=== PATIENT | male | born 1990 | race Caucasian/White ===

== ENCOUNTER → 2018-07-11 12:19 | Outpatient (CLI) | payer OTHER, SELFPAY | PROVIDERS: Family Provider Family Medicine; PCP Family Medicine; Visit Provider Physician Assistant | DX: L30.1 Dyshidrosis [pompholyx] (principal) | CPT/HCPCS: 87070; 87077; 87147; 87186; 87205 ==

== ENCOUNTER 2018-09-07 08:34 | Emergency (ER) | payer OTHER, SELFPAY ==
[2018-09-07 08:38] VITALS: BP 150/102; PULSE 97; RESP 18; TEMP 36.9; O2SAT 96; BMI 36.1
[2018-09-07] MEDS: TET,DIPH,PERTUSS(ACELL),VAC/PF 0.5 ML SYRINGE IM (08:40)
--- NOTE | 2018-09-07 09:00 | ED_ITS ---
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 No numbness no tingling. Bleeding Controlled. Onset (ago): minute(s) Related Data Previous Rx's Medication Instructions Recorded triamcinolone acetonide 1 aime TOPICAL BID #30 gm 07/17/17 tramadol 50 mg tablet 50 mg PO QDAYP PRN #30 tab 07/04/18 mupirocin 2 % topical ointment 1 applic TOP TID #30 gram 07/11/18 Allergies Allergy/AdvReac Type Severity Reaction Status Date / Time No Known Drug Allergies Allergy Verified 09/07/18 08:41 Review of Systems Review of Systems GENERAL: Denies chills,fever HEENT: Denies throat pain RESPIRATORY: Denies dyspnea, cough, wheezing CARDIOVASCULAR: Denies chest pain, palpitations GASTROINTESTINAL: Denies nausea, vomiting MUSCULOSKELETAL: Denies extremity pain, injury SKIN: See HPI NEUROLOGIC: Denies weakness, dizziness, headache, numbness 8 point review of systems is negative except for those stated above and HPI PFSH Medical History Patient denies significant medical history (Acute) Social History Smoking Status: Former smoker Tobacco: How many years used: 3 alcohol intake: current (Daily) Social History Smoking Status: Former smoker Tobacco: How many years used: 3 alcohol intake: current (Daily) Exam Initial Vital Signs Initial Vital Signs: Vital Signs Temperature 98.4 F 09/07/18 08:38 Pulse Rate 97 H 09/07/18 08:38 Respiratory Rate 18 09/07/18 08:38 Blood Pressure 150/102 H 09/07/18 08:38 Pulse Oximetry 96 09/07/18 08:38 GENERAL: Well-appearing, well-nourished and in no acute distress. CARDIOVASCULAR: peripheral pulses in tact, cap refill <2 sec RESPIRATORY: No respiratory distress, speaks in full sentences without difficulty EXTREMITIES: Normal range of motion, no clubbing or edema. Neurovascularly intact NEUROLOGICAL: Cranial nerves II through XII grossly intact. Normal gait and speech. SKIN: Left thumb tip laceration through the very distal part of the nail. Bleeding controlled good skin approximation. Good alignment of everything. Skin Fingers- Fingertip Back: 1. Bleeding controlled good skin approximation good alignment Course Orders Ordered: Discontinued Medications Diphtheria/Tetanus/Acell Pertussis (Adacel) 0.5 ml IM .ONCE ONE Stop: 09/07/18 09:52 Last Admin: 09/07/18 08:40 Dose: 0.5 ml Vital Signs - 8 hr 09/07/18 08:38 09/07/18 10:07 Temperature 98.4 F Pulse Rate 97 H 95 H Respiratory Rate 18 20 Blood Pressure 150/102 H 129/88 Pulse Oximetry 96 99 MDM - Wound/Laceration MDM Narrative Medical decision making narrative: Dressing placed. Tetanus given. Discharge Plan Departure Patient Disposition: Home Clinical Impression: Laceration of left thumb Qualifiers: Encounter type: initial encounter Damage to nail status: with damage Foreign body presence: without foreign body Qualified Code(s): S61.112A - Laceration wit hout foreign body of left thumb with damage to nail, initial encounter Discharge Date/Time: 09/07/18 10:07 Interventions: ED Discharge Assessment Last Done: 09/07/18 10:07 Instructions: DI for Minor Laceration Activity Restrictions/Additional Instructions: *You have been diagnosed with laceration of left *What to do: May remove bandage this evening or tomorrow morning. Keep clean and dry with soap and water *Continue to take medications as directed Apply Neosporin or antibiotic ointment 1-2 times daily to help with healing *Follow up with your primary care provider in 2-3 days *Return to ER if you should have redness, pus, swelling, increased pain or any new, worsening or concerning symptoms Prescriptions: No Action tramadol 50 mg tablet 50 mg PO QDAYP PRN (Reason: pain) Qty: 30 RF: 0 mupirocin 2 % ointment 1 applic TOP TID Qty: 30 RF: 0 triamcinolone acetonide 0.1 % cream 1 aime Topical BID Qty: 30 RF: 0 Referrals: Sybil Rodriguez DO [Primary Care Provider] -
[2018-09-07 10:07] VITALS: BP 129/88; PULSE 95; RESP 20; O2SAT 99
== END 2018-09-07 10:07 | disposition home or self-care (01) ==
LOC: ED 09:25
PROVIDERS: Emergency Provider Emergency Medicine; PCP Family Medicine
DX: S61.112A Laceration without foreign body of left thumb with damage to nail, initial encounter (principal); W26.0XXA Contact with knife, initial encounter; Z23 Encounter for immunization; Y99.0 Civilian activity done for income or pay
CPT/HCPCS: 90471; 99283; 90715

== ENCOUNTER → 2021-09-11 17:38 | Outpatient (CLI) | payer OTHER, SELFPAY ==
[2021-09-11 20:42] LABS: Urine N gonorrhoeae NOT DETECTED
[2021-09-11 20:45] LABS: Urine Chlamydia NOT DETECTED
== END ==
PROVIDERS: PCP Family Medicine; Visit Provider Nurse Practitioner Family
DX: N34.3 Urethral syndrome, unspecified (principal); Z13.9 Encounter for screening, unspecified
CPT/HCPCS: 87086; 87491; 87591

== ENCOUNTER → 2023-06-24 12:08 | Outpatient (CLI) | payer OTHER, SELFPAY ==
--- NOTE | 2023-06-24 12:10 | DI.RAD.S_ITS ---
PROCEDURE: XR CHEST 2V INDICATIONS: Cough x 2 weeks TECHNIQUE: 2 views of the chest were acquired. COMPARISON: None. FINDINGS: Surgical changes and devices: None. Lungs and pleura: Lungs are clear. No pleural effusions or pneumothorax. Mediastinum: Mediastinal contours are normal. Heart size is normal. Bones and chest wall: No suspicious bony abnormalities. Soft tissues appear unremarkable. IMPRESSION: No acute cardiopulmonary abnormality is seen. Dictated by: Jj Diaz M.D. on 06/24/2023 at 14:18 Approved by: Jj Diaz M.D. on 06/24/2023 at 14:20
== END ==
PROVIDERS: Referring Provider Physician Assistant; Visit Provider Physician Assistant
DX: R05.9 Cough, unspecified (principal)
CPT/HCPCS: 71046

== ENCOUNTER → 2023-07-27 14:17 | Outpatient (CLI) | payer OTHER, SELFPAY ==
[2023-07-27 14:58] LABS: Influenza A - CEPHEID Flu A NEGATIVE (NEGATIVE); Influenza B - CEPHEID Flu B NEGATIVE (NEGATIVE); Respiratory Syncytial Virus Negative (Negative)
[2023-07-27 14:59] LABS: COVID-19 CEPHEID 4-PLEX PCR Negative (Negative)
== END ==
PROVIDERS: Visit Provider Physician Assistant Surgical
DX: R05.1 Acute cough (principal)
CPT/HCPCS: 0241U

== ENCOUNTER → 2023-07-27 14:48 | Outpatient (CLI) | payer OTHER, SELFPAY ==
--- NOTE | 2023-07-27 14:50 | DI.RAD.S_ITS ---
PROCEDURE: XR CHEST 2V INDICATIONS: Wheezing, cough TECHNIQUE: 2 views of the chest were acquired. COMPARISON: [facility], , XR CHEST 2V, 06/24/2023, 12:09. FINDINGS: Surgical changes and devices: None. Lungs and pleura: Lungs are clear. No pleural effusions or pneumothorax. Mediastinum: Mediastinal contours are normal. Heart size is normal. Bones and chest wall: No suspicious bony abnormalities. Soft tissues appear unremarkable. IMPRESSION: Unremarkable two view chest x-ray Approved by: Morales Mendoza M.D. on 07/27/2023 at 14:36
== END ==
PROVIDERS: Referring Provider Physician Assistant Surgical; Visit Provider Physician Assistant Surgical
DX: R06.2 Wheezing (principal); R05.1 Acute cough
CPT/HCPCS: 0241U; 71046